=== PATIENT | female | born 1960 | race African-American/Black ===

== ENCOUNTER 2022-11-30 13:11 | Emergency (ER) | payer BC, SELFPAY ==
[2022-11-30 13:21] VITALS: BP 123/87; PULSE 71; RESP 18; TEMP 36.3; O2SAT 99
[2022-11-30 15:27] VITALS: BP 134/81; PULSE 68; RESP 17; TEMP 36.3; O2SAT 98
--- NOTE | 2022-11-30 16:24 | ED.GENADULT ---
HPI - General Adult General Chief complaint: Skin/Abscess/Foreign Body Stated complaint: rash off and on since June Time Seen by Provider: 11/30/22 15:45 History of Present Illness HPI narrative: 62-year-old female here for evaluation of pruritic rash to her wrists, groin, gluteal fold for the past 2 months. Patient had seen her primary care doctor and a branch general manager and has had topical steroids prescribed without any relief. Patient states that the areas are intensely pruritic, worse at nighttime. She lives by herself. Review of Systems Review of Systems: Gen.: Denies fevers or chills Eyes: Denies eye pain or visual change ENT: Denies congestion Respiratory: Denies shortness of breath or cough CV: Denies chest pain or palpitations GI: Denies abdominal pain nausea, emesis or diarrhea denies burning, urgency, frequency or hematuria Musculoskeletal: Denies back pain or muscle pain Neuro: Denies numbness, tingling, weakness or focal weakness Skin: Reports pruritic rash Except as documented, all other systems reviewed and negative Exam Narrative: APPEARANCE: Well appearing, no pain in distress, well-nourished. Head: Normocephalic and atraumatic. EYES: PERRLA/EOMI, conjunctivae clear NOSE: No nasal drainage EARS: External ear normal in appearance THROAT: Oropharynx is clear. Mucous membranes are moist. NECK: Supple. No adenopathy, no masses. RESPIRATORY: Airway patent, respirations nonlabored. Clear to auscultation bilaterally, no rales, rhonchi, wheezing. CARDIOVASCULAR: Regular rate and rhythm without murmurs, rubs, or gallops. ABDOMINAL: Normoactive bowel sounds. Soft, nontender, nondistended. No rebound tenderness or guarding. MUSCULOSKELETAL: Extremities are warm and well-perfused. Moves all extremities well. No edema. NEURO: Normal speech. No focal neurologic deficits. SKIN: Numerous 3 mm erythematous papules to wrists manifesting in a linear pattern, also present in the interdigital webs. Patient has similar lesions in her gluteal cleft and also to the lateral aspect of her buttocks. Overlying lichenification and excoriation noted. Nikolsky skin negative. PSYCHIATRIC: Normal affect/mood.. Course Vital Signs Vital signs: Vital Signs Temperature 97.4 F L 11/30/22 13:21 Pulse Rate 71 11/30/22 13:21 Respiratory Rate 18 11/30/22 13:21 Blood Pressure 123/87 11/30/22 13:21 Pulse Oximetry 99 11/30/22 13:21 Oxygen Delivery Room Air 11/30/22 13:21 Temperature 97.4 F L 11/30/22 15:27 Pulse Rate 68 11/30/22 15:27 Respiratory Rate 17 11/30/22 15:27 Blood Pressure 134/81 11/30/22 15:27 Pulse Oximetry 98 11/30/22 15:27 Oxygen Delivery Room Air 11/30/22 13:21 Medical Decision Making MDM Narrative Medical decision making narrative: 62-year-old female here for evaluation of a pruritic rash to her wrists and gluteal fold for the past several months, unrelieved after topical steroids and Benadryl. Rash pattern and history consistent with scabies. She will be treated with ivermectin and to follow up with her PMD. Return precautions discussed. Vital Signs Vital Signs: Vital Signs Temperature 97.4 F L 11/30/22 13:21 Pulse Rate 71 11/30/22 13:21 Respiratory Rate 18 11/30/22 13:21 Blood Pressure 123/87 11/30/22 13:21 Pulse Oximetry 99 11/30/22 13:21 Oxygen Delivery Room Air 11/30/22 13:21 Temperature 97.4 F L 11/30/22 15:27 Pulse Rate 68 11/30/22 15:27 Respiratory Rate 17 11/30/22 15:27 Blood Pressure 134/81 11/30/22 15:27 Pulse Oximetry 98 11/30/22 15:27 Oxygen Delivery Room Air 11/30/22 13:21 Discharge Plan Discharge Clinical Impression: Scabies Patient Disposition: Home, Self-Care Condition: Stable Instructions: Antibiotic Form, Scabies (ED) Additional Instructions: Your symptoms today are consistent with scabies. Please take the medicine as directed. Follow-up with your primary care doctor next week. Wash all o
== END 2022-11-30 17:10 | disposition home or self-care (01) ==
PROVIDERS: Emergency Provider Physician Assistant
DX: B86 Scabies (principal)
CPT/HCPCS: 99283

== ENCOUNTER 2025-04-08 18:30 | Emergency (ER) | payer MEDICARE, SELFPAY ==
[2025-04-08 18:30] VITALS: BP 155/87; PULSE 77; RESP 18; TEMP 35.9; O2SAT 100
--- NOTE | 2025-04-08 20:05 | ED.SKABFB ---
HPI - Skin/Abscess/Foreign Bdy General Chief complaint: Skin/Abscess/Foreign Body Stated complaint: bump on mouth Source: patient and RN notes reviewed Mode of arrival: ambulatory Limitations: no limitations History of Present Illness HPI narrative: 65-year-old female presents Express Care complaining of a pustule in swelling to the left side of her face. Patient states the pustules near her lip and stated it started yesterday. Patient states that is tender to palpation. She does have a history of fever blisters. Patient states it does not look like her previous visit fever blisters in the past. Patient states there is slight drainage coming of the pustule. Patient denies any swelling in her mouth, difficulty breathing, fevers, body aches, or any other symptoms. Related Data Home Medications ?Medication ?Instructions ?Recorded ?Confirmed ?Last Taken ?Type aspirin 81 mg tablet,delayed 81 mg PO DAILY 09/24/24 03/25/25 Unknown History release cholecalciferol (vitamin D3) 25 25 mcg PO DAILY 09/24/24 03/25/25 Unknown History mcg (1,000 unit) capsule pregabalin 50 mg capsule (Lyrica) 50 mg PO BID 09/24/24 03/25/25 Unknown History losartan 50 mg-hydrochlorothiazide tablet PO DAILY 12/24/24 03/25/25 Unknown History 12.5 mg tablet Allergies Allergy/AdvReac Type Severity Reaction Status Date / Time HELGA Inhibitors Allergy Severe Swelling Verified 04/08/25 19:02 amoxicillin Allergy Intermediate Rash Verified 04/08/25 19:02 gabapentin Allergy Intermediate Rash Verified 04/08/25 19:03 Review of Systems Review of Systems: CONSTITUTIONAL: Denies fever, chills, or sweats. EYES: Denies visual changes, redness, or discharge. ENT: Denies rhinorrhea, congestion, sore throat, or otalgia. CARDIOVASCULAR: Denies chest pain, palpitations, or edema. RESPIRATORY: Denies cough or dyspnea. GASTROINTESTINAL: Denies abdominal pain, nausea, vomiting, or diarrhea. GENITOURINARY: Denies dysuria or hematuria. SKIN: Denies rash or itching. Positive for wound. MUSCULOSKELETAL: Denies back pain, joint pain, or myalgia. NEUROLOGIC: Denies headache, numbness, or weakness. PSYCHIATRIC: Denies anxiety or depression. All other systems reviewed are negative, except as documented in HPI. ON LICENSE OF [facility] Past Medical History Medical History Arthritis Family History Family History Mother Hypertension Cancer Father Hypertension Cancer Sibling Cancer Alcoholism Diabetes mellitus Heart disease Hypertension Social History Social History Smoking status: Never smoker Alcohol intake: former Substance use: never Do You Feel Safe in your Home?: Yes Lack of Transportation: No Lack of Food: Never True Current Housing: I Have Housing Concerned About Future Housing: No Difficulty Paying Gas/Electric Bills: No Difficulty Paying for Meds: No Currently Unemployed: No Education: Master's Degree or Higher Difficulty w/ Childcare or Family Care: No Comments At the time of my signature, I reviewed and agree with the nursing past medical, surgical, social, and family history. There is no relevant family history pertinent to the patient complaint. Exam Narrative: GENERAL: This is a well-nourished, well-developed adult, in no apparent distress. They are non ill-appearing, nontoxic appearing. HEAD: normocephalic, atraumatic. Face: Single pustule comedone present the left side of the patient's face near her left upper lip. Pustule is erythematous and tender to palpation. Drainage is present. No open sores. Pustule measuring approximately 1 cm x 1 cm. EYES: Sclera clear/white. Conjunctiva normal. Vision is grossly intact. Extraocular movements intact EARS: External ears normal, NOSE: External nose normal MOUTH: Oropharynx clear without swelling or redness. Good dentition. No missing teeth. No gingivitis. Suspicious lesions or sores in patient's oropharynx. Tongue is normal. THROAT: Mucous membranes moist, posterior pharynx clear, without erythema or swelling. Uvula midline. NECK: Normal range of motion CARDIOVASCULAR: Regular rate and rhythm RESPIRATORY: Respiratory rate normal, respiratory effort nonlabored, no respiratory distress SKIN: warm, Dry, intact with no suspicious lesions or rash, good texture and turgor. NEURO: awake, alert, and oriented to person, place and time. There were no obvious focal neurologic abnormalities. EXTREMITIES: No joint tenderness, effusion, or edema noted. BACK: Nontender without deformity. Course Course Emergency Course: Portions of this record may have been created with voice recognition software Level of Care: Express Care Visit Vital Signs Vital signs: Vital Signs Temperature 96.7 F L 04/08/25 18:30 Pulse Rate 77 04/08/25 18:30 Respiratory Rate 18 04/08/25 18:30 Blood Pressure 155/87 H 04/08/25 18:30 Pulse Oximetry 100 04/08/25 18:30 Oxygen Delivery Room Air 04/08/25 18:30 Temperature 96.7 F L 04/08/25 18:30 Pulse Rate 77 04/08/25 18:30 Respiratory Rate 18 04/08/25 18:30 Blood Pressure 155/87 H 04/08/25 18:30 Pulse Oximetry 100 04/08/25 18:30 Oxygen Delivery Room Air 04/08/25 18:30 Reviewed MDM - Skin/Abscess/Foreign Bdy MDM Narrative Medical decision making narrative: It is likely an acne comedone. Will treat with clindamycin and benzyl peroxide cream. Patient also requesting a refill of her acyclovir as needed for herpes flare up. Will send prescription over. Does not appear to be herpes sore. Discussed physical exam findings. Advised supportive measures and signs/symptoms to go to the ER. Pt is appropriate for outpt treatment and f/u. Differential Diagnosis Differential diagnosis: Likely abscess of skin or subcutaneous tissue, impetigo and other (Acne vulgaris, acne comedone. ) Critical Care Time Critical Care Time Critical Care Time: No Discharge Plan Discharge Clinical Impression: Acne comedone Patient Disposition: Home Condition: Stable Instructions: Antibiotic Form, Benzoyl Peroxide (On the skin) Additional Instructions: Use the clindamycin benzyl peroxide as directed. Benzyl peroxide may bleach hair or clothing. You have been given a refill for acyclovir cream as needed for fever blisters. It is likely that you have a single acne near your lip. Follow-up with primary care provider in 3-5 days. Develops any worsening symptoms, or worsening swelling, redness, fevers or any other concerns please go to the ER immediately. Patient Language: Filipino Prescriptions: New clindamycin-benzoyl peroxide 1.2-2.5 % gel with pump 1 applic topical DAILY Qty: 50 0RF acyclovir [Zovirax] 5 % cream 1 applic topical .five times a day 4 Days Qty: 5 0RF Rx Instructions: apply to affected area No Action pregabalin [Lyrica] 50 mg capsule 50 mg PO BID aspirin 81 mg tablet,delayed release (DR/EC) 81 mg PO DAILY cholecalciferol (vitamin D3) 25 mcg (1,000 unit) capsule 25 mcg PO DAILY losartan-hydrochlorothiazide 50-12.5 mg tablet PO DAILY ivermectin 3 mg tablet 15 mg PO Q10D Qty: 10 0RF Follow-up/Referrals: UNKNOWN,DOCTOR [Primary Care Provider] - Time of Disposition: 19:40
== END 2025-04-08 19:45 | disposition home or self-care (01) ==
DX: L70.8 Other acne (principal); M19.90 Unspecified osteoarthritis, unspecified site
CPT/HCPCS: 99213; G0463

== ENCOUNTER 2025-05-01 08:23 | Emergency (ER) | payer MEDICARE, SELFPAY ==
[2025-05-01 08:36] VITALS: BP 146/97; PULSE 80; RESP 16; TEMP 36.4; O2SAT 99
--- NOTE | 2025-05-01 08:41 | ED.GENADULT ---
HPI - General Adult General Chief complaint: Upper Respiratory Infection Stated complaint: body aches Time Seen by Provider: 05/01/25 08:29 Source: patient Mode of arrival: ambulatory Limitations: no limitations History of Present Illness HPI narrative: patient is a 55-year-old female presenting with complaint of generalized body aches. Additional sx reported include fever (tmax 101.8), chills. Sx began yesterday. She voices concern for potential adverse effect of medication, Aldronate, which she began taking shortly prior to onset of sx. Denies any known direct sick contacts. 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 No unintentional weight loss, night sweats, or any other complaints. Related Data Home Medications ?Medication ?Instructions ?Recorded ?Confirmed ?Last Taken ?Type aspirin 81 mg tablet,delayed 81 mg PO DAILY 09/24/24 03/25/25 Unknown History release cholecalciferol (vitamin D3) 25 25 mcg PO DAILY 09/24/24 03/25/25 Unknown History mcg (1,000 unit) capsule pregabalin 50 mg capsule (Lyrica) 50 mg PO BID 09/24/24 03/25/25 Unknown History losartan 50 mg-hydrochlorothiazide tablet PO DAILY 12/24/24 03/25/25 Unknown History 12.5 mg tablet alendronate 70 mg tablet mg PO 05/01/25 Unknown History Allergies Allergy/AdvReac Type Severity Reaction Status Date / Time HELGA Inhibitors Allergy Severe Swelling Verified 05/01/25 09:01 amoxicillin Allergy Intermediate Rash Verified 05/01/25 09:01 gabapentin Allergy Intermediate Rash Verified 05/01/25 09:01 Review of Systems Review of Systems: All systems reviewed & are unremarkable except as noted in HPI and below [facility] Past Medical History Medical History Arthritis Family History Family History Mother Hypertension Cancer Father Hypertension Cancer Sibling Cancer Alcoholism Diabetes mellitus Heart disease Hypertension Social History Social History Smoking status: Never smoker Alcohol intake: former Substance use: never Do You Feel Safe in your Home?: Yes Lack of Transportation: No Lack of Food: Never True Current Housing: I Have Housing Concerned About Future Housing: No Difficulty Paying Gas/Electric Bills: No Difficulty Paying for Meds: No Currently Unemployed: No Education: Master's Degree or Higher Difficulty w/ Childcare or Family Care: No Exam Narrative: GENERAL: Well-appearing, well-nourished, and in no acute distress. HEAD: Normocephalic, atraumatic. EYES: EOMI. No redness or drainage. Conjunctivae normal. ENT: Mucous membranes pink and moist. Nares clear. No rhinorrhea. TMs normal bilaterally. Throat normal. Uvula midline. NECK: Normal AROM. Supple. No lymphadenopathy. CHEST: No respiratory distress. Clear to auscultation. HEART: Regular rate and rhythm. No murmur appreciated. Normal peripheral pulses. ABDOMEN: Soft, nontender, nondistended, normal active bowel sounds. MUSCULOSKELETAL: No bony tenderness. EXTREMITIES: Normal range of motion. No edema. SKIN: Warm, dry, no rash. Capillary refill normal. Normal skin turgor. NEURO: No focal deficits. Alert and oriented x3. Gait steady. PSYCH: Normal affect. No signs of depression or anxiety. Course Course Level of Care: Express Care Visit Vital Signs Vital signs: Vital Signs Temperature 97.5 F L 05/01/25 08:36 Pulse Rate 80 05/01/25 08:36 Respiratory Rate 16 05/01/25 08:36 Blood Pressure 146/97 H 05/01/25 08:36 Pulse Oximetry 99 05/01/25 08:36 Oxygen Delivery Room Air 05/01/25 08:36 Temperature 97.5 F L 05/01/25 08:36 Pulse Rate 80 05/01/25 08:36 Respiratory Rate 16 05/01/25 08:36 Blood Pressure 146/97 H 05/01/25 08:36 Pulse Oximetry 99 05/01/25 08:36 Oxygen Delivery Room Air 05/01/25 08:36 Medical Decision Making Vital Signs Vital Signs: Vital Signs Temperature 97.5 F L 05/01/25 08:36 Pulse Rate 80 05/01/25 08:36 Respiratory Rate 16 05/01/25 08:36 Blood Pressure 146/97 H 05/01/25 08:36 Pulse Oximetry 99 05/01/25 08:36 Oxygen Delivery Room Air 05/01/25 08:36 Temperature 97.5 F L 05/01/25 08:36 Pulse Rate 80 05/01/25 08:36 Respiratory Rate 16 05/01/25 08:36 Blood Pressure 146/97 H 05/01/25 08:36 Pulse Oximetry 99 05/01/25 08:36 Oxygen Delivery Room Air 05/01/25 08:36 Lab Data Labs: Lab Results 05/01/25 Range/Units 08:58 POC Influenza A Ag Negative (Negative) POC Influenza B Ag Negative (Negative) POC SARS CoV-2 Ag Negative (Negative) Discharge Plan Discharge Clinical Impression: Body aches Patient Disposition: Home Condition: Stable Additional Instructions: Go straight to ER should your symptoms become worse or should any new symptoms develop Patient Language: Ukrainian Prescriptions: No Action alendronate 70 mg tablet PO pregabalin [Lyrica] 50 mg capsule 50 mg PO BID aspirin 81 mg tablet,delayed release (DR/EC) 81 mg PO DAILY cholecalciferol (vitamin D3) 25 mcg (1,000 unit) capsule 25 mcg PO DAILY losartan-hydrochlorothiazide 50-12.5 mg tablet PO DAILY Follow-up/Referrals: Henrique,Robert [Other] - 05/01/25 Stand Alone Forms: Work/School Release IP Time of Disposition: 09:19
[2025-05-01 09:12] LABS: EDCOVIDSCREEN Negative (Negative); EDINFLUASCREEN Negative (Negative); EDINFLUBSCREEN Negative (Negative)
== END 2025-05-01 09:30 | disposition home or self-care (01) ==
PROVIDERS: Emergency Provider Registered Nurse
DX: R52 Pain, unspecified (principal); Z20.822 Contact with and (suspected) exposure to COVID-19; M19.90 Unspecified osteoarthritis, unspecified site; Z79.82 Long term (current) use of aspirin
CPT/HCPCS: 87426; 87804; 99212; G0463